=== PATIENT | male | born 1995 | race Caucasian/White ===

== ENCOUNTER 2019-06-16 18:01 | Emergency (ER) | payer SELFPAY ==
[2019-06-16 18:34] VITALS: BP 159/85; PULSE 68; RESP 16; TEMP 36.7; O2SAT 98; BMI 37.5
[2019-06-16 19:34] LABS: Basophils % 0.3 %; Eosinophils # 0.1 10^3/uL (0.0-0.8); Eosinophils % 0.4 %; Hematocrit 45.8 % (42.0-52.0); Hemoglobin 15.3 g/dL (11.7-16.6); Lymphocytes # 2.9 10^3/uL (0.8-4.8); Lymphocytes % 23.9 %; Mean Corpuscular HGB Conc 33.4 g/dL (30.0-36.0); Mean Corpuscular Hemoglobin 29.5 pg (28.0-34.0); Mean Corpuscular Volume 88.2 fL (80-94); Mean Platelet Volume 9.7 fL (7.4-10.4); Monocytes # 0.8 10^3/uL (0.2-0.9); Monocytes % 6.4 %; Neutrophils # 8.2 10^3/uL (1.8-7.7); Neutrophils % 68.2 %; Nucleated Red Blood Cells % 0 %; Platelet Count 260 10^3/cmm (130-400); Red Blood Count 5.19 10^6/uL (4.1-5.3); Red Cell Distribution Width 13.3 % (12.1-15.1)
[2019-06-16 19:48] LABS: Alanine Aminotransferase 23 U/L (0-41); Albumin Level 4.7 g/dL (3.5-5.2); Alkaline Phosphatase 68 IU/L (40-130); Anion Gap 12.8 (5-19); Aspartate Amino Transferase 17 U/L (0-40); Blood Urea Nitrogen 11 mg/dL (6-20); Calcium 9.5 mg/dL (8.5-10.5); Carbon Dioxide 29 mmol/L (22-29); Chloride 106 mmol/L (98-107); Globulin 2.2 g/dL (1.3-4.6); Glomerular Filtration Rate 93.4 mL/min (90-130); Glucose 109 mg/dL (65-115); Lipase 22 U/L (13-60); Osmolality Calculated 295 mOsm/kg (285-295); Potassium 3.8 mmol/L (3.5-5.1); Sodium 144 mmol/L (136-145); Total Bilirubin 0.4 mg/dL (0.15-1.2); Total Protein 6.9 g/dL (6.6-8.7)
[2019-06-16 20:30] LABS: Add Urine Microscopic? YES; Bilirubin Urine Neg (NEGATIVE); Blood Urine Neg (Negative); Glucose Urine UA Norm (Normal); Ketones Urine 1+ (Negative); Leukocyte Esterase Urine Negative (Negative); Nitrate Urine Negative (Negative); Protein Urine Neg (Negative); Specific Gravity, Urine 1.015 (1.005-1.030); Urine Appearance Cloudy (CLEAR); Urine Color Yellow (Yellow); Urobilinogen Urine 1 mg/dL (Negative); pH Urine 7 (5-7)
[2019-06-16 20:32] LABS: Add Urine Culture? No; Amorphous Sediment Urine 3+; Bacteria Urine TRACE; Coarse Granular Casts Urine 0-4 /lpf; Mucus Urine TRACE; RBC Urine 0-4 /hpf (0-2); Squamous Epithelial Cell Urine 0-4 (0-5); WBC Urine 0-4 /hpf (0-5)
[2019-06-16 21:08] VITALS: O2SAT 97
[2019-06-16 21:10] VITALS: O2SAT 96
[2019-06-16 21:15] VITALS: O2SAT 96
[2019-06-16 21:20] VITALS: O2SAT 98
[2019-06-16] MEDS: ciprofloxacin 500 mg Tablet PO (21:20)
[2019-06-16] MEDS: metroNIDAZOLE 500 MG Tablet PO (21:20)
--- NOTE | 2019-06-17 03:15 | ED_ITS ---
HPI - Abdominal Pain General: Chief Complaint: Abdominal Pain Stated Complaint: abd pain Time Seen by Provider: 06/16/19 21:06 History of Present Illness: HPI narrative: History of diverticulitis and has similar symptoms presently no fever MD elicited complaint: abdominal pain Pertinent past history: diverticulitis Onset (ago): hour(s) Pain Consistency: constant Location: LLQ Severity: mild Radiation: none Migration to: no migration Exacerbating factors: nothing Relieving factors: nothing Associated Symptoms: Denies chills, fever(s), nausea and vomiting Review of Systems Const: Denies: fever, chills or body aches Eyes: Denies: change in vision or blurry vision ENMT: Denies: throat pain or nasal congestion Card: Denies: chest pain or shortness of breath on exertion Resp: Denies: shortness of breath, productive cough or non-productive cough GI: Reports: abdominal pain; Denies: nausea or vomiting : Denies: difficulty urinating Musc: Denies: extremity pain Skin/Breast: Denies: rash Neuro: Denies: headache Psych: Denies: anxiety or depression Yuan/Lymph: Denies: easy bruising PFSH ED PFSH: Social History Smoking and tobacco status: never smoked Physical Exam Const: COMMON NORMALS: no apparent distress, average body habitus and oriented x3 HENMT: COMMON NORMALS: normocephalic HEAD & SCALP: normal to inspection and normocephalic FACE & SINUS: normal facial exam Eye: COMMON NORMALS: conjunctivae normal GENERAL EYE: normal appearance of both eyes CONJUNCTIVA: Yes conjunctivae normal Neck/C-Spine: COMMON NORMALS: no JVD Chest: COMMONS NORMALS: inspection of chest normal Resp: COMMON NORMALS: normal respiratory effort and clear to auscultation bilaterally AUSCULTATION: clear to auscultation bilaterally Cardio: COMMON NORMALS: no JVD, regular rate and regular rhythm RATE: regular rate RHYTHM: regular rhythm GI: COMMON NORMALS: normal to inspection, nondistended, normoactive bowel sounds INSPECTION: Yes normal to inspection AUSCULTATION: Yes normoactive bowel sounds PALPATION: Yes tender (Very mild) Extremity: COMMON NORMALS: normal to inspection and full ROM Neuro: COMMON NORMALS: oriented x3 Course Vital Signs: Vital signs: Vital Signs Temperature 98.0 F 06/16/19 18:34 Pulse Rate 68 06/16/19 18:34 Respiratory Rate 16 06/16/19 18:34 Blood Pressure 159/85 06/16/19 18:34 Pulse Oximetry 98 06/16/19 21:20 MDM - Abdominal Pain Lab Data: Labs: Lab Results 06/16/19 06/16/19 06/16/19 Range/Units 19:23 19:27 19:27 WBC 12.0 H (4.0-10.0) 10^3/ uL RBC 5.19 (4.1-5.3) 10^6/u L Hgb 15.3 (11.7-16.6) g/dL Hct 45.8 (42.0-52.0) % MCV 88.2 (80-94) fL MCH 29.5 (28.0-34.0) pg MCHC 33.4 (30.0-36.0) g/dL RDW 13.3 (12.1-15.1) % Plt Count 260 (130-400) 10^3/c mm MPV 9.7 (7.4-10.4) fL Neut % (Auto) 68.2 % Lymph % (Auto) 23.9 % [place] % (Auto) 6.4 % Eos % (Auto) 0.4 % Baso % (Auto) 0.3 % Neut # (Auto) 8.2 H (1.8-7.7) 10^3/u L Lymph # (Auto) 2.9 (0.8-4.8) 10^3/u L [place] # (Auto) 0.8 (0.2-0.9) 10^3/u L Eos # (Auto) 0.1 (0.0-0.8) 10^3/u L Baso # (Auto) 0.0 (0.0-0.1) 10^3/u L Nucleated RBC % (a uto) 0 % Nucleated RBCs # 0.0 /100WBC Sodium 144 (136-145) mmol/L Potassium 3.8 (3.5-5.1) mmol/L Chloride 106 (98-107) mmol/L Carbon Dioxide 29 (22-29) mmol/L Anion Gap 12.8 (5-19) BUN 11 (6-20) mg/dL Creatinine 1.0 (0.7-1.2) mg/dL GFR Calculation 93.4 (90-130) mL/min Glucose 109 (65-115) mg/dL Calculated Osmolal ity 295 (285-295) mOsm/k g Calcium 9.5 (8.5-10.5) mg/dL Total Bilirubin 0.4 (0.15-1.2) mg/dL AST 17 (0-40) U/L ALT 23 (0-41) U/L Alkaline Phosphata se 68 (40-130) IU/L Total Protein 6.9 (6.6-8.7) g/dL Albumin 4.7 (3.5-5.2) g/dL Globulin 2.2 (1.3-4.6) g/dL Lipase 22 (13-60) U/L Urine Color Yellow (Yellow) Urine Appearance Cloudy (CLEAR) Urine pH 7 (5-7) Ur Specific Gravit y 1.015 (1.005-1.030) Urine Protein Neg (Negative) Urine Glucose (UA) Norm (Normal) Urine Ketones 1+ H (Negative) Urine Blood Neg (Negative) Urine Nitrate Negative (Negative) Urine Bilirubin Neg (NEGATIVE) Urine Urobilinogen 1 H (Negative) mg/dL Ur Leukocyte Nallely ase Negative (Negative) Urine RBC 0-4 H (0-2) /hpf Urine WBC 0-4 H (0-5) /hpf Ur Squamous Epith Cells 0-4 H (0-5) Amorphous Sediment 3+ Urine Bacteria Trace (NONE) Coarse Granular Ca sts 0-4 H /lpf Urine Mucus Trace Discharge Plan Discharge Patient Disposition: Home, Self-Care Clinical Impression: Diverticulitis Condition: Stable Prescriptions: New Flagyl 500 mg tablet 500 mg PO BID 7 Days Qty: 14 RF: 0 ciprofloxacin HCl 500 mg tablet 500 mg PO BID Qty: 14 RF: 0 Discharge Orders: Discharge Order (Routine); Ordered 06/16/19 Ordered By: Mauricio Hewitt Discharge Diet: Advance as tolerated Discharge Activity: Resume usual activity Patient Instructions: Diverticulitis (ED) Activity Restrictions/Additional Instructions: Follow-up with medical provider as directed. Take medications as prescribed. Return to the ER or your medical provider if condition worsens. Please read and understand discharge instructions. If any questions ask please. Discharge Date/Time: 06/16/19 21:28 Coding Level of Care Code ED Contracts Advisor for Terranceg Fwd Exam Comprehensive
== END 2019-06-16 21:28 | disposition home or self-care (01) ==
PROVIDERS: Emergency Medicine; Emergency Provider Nurse Practitioner Family
DX: K57.92 Diverticulitis of intestine, part unspecified, without perforation or abscess without bleeding (principal)
CPT/HCPCS: 12345; 36415; 80053; 81001; 83690; 85025; 99282; 99283

== ENCOUNTER 2020-02-29 11:44 | Outpatient (CLI) | payer SELFPAY ==
[2020-02-29 12:11] VITALS: BP 142/87; PULSE 90; RESP 18; TEMP 36.9; O2SAT 98; BMI 36.0
--- NOTE | 2020-02-29 12:27 | W.ED.ABDPA2 ---
HPI - Abdominal Pain General: Chief Complaint: Abdominal Pain Stated Complaint: SHARP AB PAIN, DARK STOOL YESTERDAY Time Seen by Provider: 02/29/20 12:26 Source: patient Mode of arrival: ambulatory Limitations: no limitations History of Present Illness: HPI narrative: Patient is a 24-year-old male who presents to ED today with a complaint of abdominal pain. Patient tells me he has a history of diverticulitis and states his pain today feels similar. He reports one darker than normal stool yesterday but states his stools have cleared up today. He is not having any nausea or vomiting. No fevers. MD elicited complaint: abdominal pain Pertinent past history: diverticulitis Onset (ago): day(s) Pain Consistency: constant Location: Epigastric and LLQ Severity: moderate Quality: cramping Radiation: none Migration to: no migration Associated Symptoms: Reports diarrhea; Denies chills, dysuria, fever(s), nausea and vomiting Review of Systems Const: Denies: fever(s), chills or body aches Card: Denies: chest pain Resp: Denies: dyspnea GI: Reports: abdominal pain and diarrhea; Denies: nausea or vomiting : Denies: flank pain or dysuria Musc: Denies: back pain PFSH ED PFSH: Social History Smoking and tobacco status: never smoked Physical Exam Const: COMMON NORMALS: no acute distress, average body habitus, patient oriented x3, no limitations, healthy appearing, alert and well nourished Resp: COMMON NORMALS: normal respiratory effort and clear to auscultation bilaterally AUSCULTATION: clear to auscultation bilaterally Cardio: COMMON NORMALS: regular rate and regular rhythm RATE: regular rate RHYTHM: regular rhythm GI: COMMON NORMALS: Normal to inspection, nondistended, normoactive bowel sounds present, Soft to palpation, No hepatosplenomegaly present and no masses PALPATION: Yes Soft to palpation, Yes Tenderness to palpation present (GI) (mid abdomen/LLQ) and Yes No hepatosplenomegaly present : COMMON NORMALS: Yes no CVA tenderness BLADDER/KIDNEY EXAM: Yes no CVA tenderness Back/Pelvis: COMMON NORMALS: no CVA tenderness LUMBAR SPINE/LOWER BACK: Yes normal to inspection, Yes lumbar ROM normal and No lumbar spinal tenderness Neuro: COMMON NORMALS: patient oriented x3, moves all extremities, no focal motor deficits and no sensory deficits noted SENSORIUM/ORIENTATION: Yes alert GAIT: Yes Normal gait present MOTOR EXAM: 5/5 motor strength present throughout Skin: COMMON NORMALS: no rashes or lesions noted GENERAL SKIN EXAM: no rashes or lesions noted Course Vital Signs: Vital signs: Vital Signs Temperature 98.4 F 02/29/20 12:11 Pulse Rate 88 02/29/20 14:11 Respiratory Rate 18 02/29/20 14:11 Blood Pressure 136/59 02/29/20 14:11 Pulse Oximetry 98 02/29/20 14:11 MDM - Abdominal Pain MDM Narrative: Medical decision making narrative: Patient clinically appears well. His vital signs are perfect. Blood work is non-concerning at this time. He has some very mild elevation of his bili and ALT. He has no localized right upper quadrant tenderness. Gallbladder normal on CT imaging. Patient's urine reported manually as dining server is down-this was normal. Incidental findings of some lytic lesions on patient's L4-L5 vertebrae. These are most likely benign however he was made aware of them. Case management is currently working on getting him set up with a primary care provider for further follow-up. Patient denies back pain, radicular symptoms, fevers, or trouble with urinary retention or bowel incontinence. Return to ED precautions given regarding his abdominal pain. Lab Data: Labs: Lab Results 02/29/20 02/29/20 Range/Units 12:40 12:40 WBC 7.6 (4.0-10.0) 10^3/ uL RBC 5.53 H (4.1-5.3) 10^6/u L Hgb 16.2 (11.7-16.6) g/dL Hct 48.1 (42.0-52.0) % MCV 87.0 (80-94) fL MCH 29.3 (28.0-34.0) pg MCHC 33.7 (30.0-36.0) g/dL RDW 12.6 (12.1-15.1) % Plt Count 237 (130-400) 10^3/c mm MPV 10.4 (7.4-10.4) fL Neut % (Auto) 60.8 % Lymph % (Auto) 31.0 % [place] % (Auto) 7.2 % Eos % (Auto) 0.3 % Baso % (Auto) 0.3 % Neut # (Auto) 4.64 (1.8-7.7) 10^3/u L Lymph # (Auto) 2.4 (0.8-4.8) 10^3/u L [place] # (Auto) 0.6 (0.2-0.9) 10^3/u L Eos # (Auto) 0.0 (0.0-0.8) 10^3/u L Baso # (Auto) 0.0 (0.0-0.1) 10^3/u L Nucleated RBC % (a uto) 0 % Nucleated RBCs # 0.0 /100WBC Sodium 140 (136-145) mmol/L Potassium 3.7 (3.5-5.1) mmol/L Chloride 103 (98-107) mmol/L Carbon Dioxide 26 (22-29) mmol/L Anion Gap 14.7 (5-19) BUN 10 (6-20) mg/dL Creatinine 1.0 (0.7-1.2) mg/dL GFR Calculation 92.6 (90-130) mL/min Glucose 96 (65-115) mg/dL Calculated Osmolal ity 289 (285-295) mOsm/k g Calcium 9.6 (8.5-10.5) mg/dL Total Bilirubin 1.5 H (0.15-1.2) mg/dL AST 40 (0-40) U/L ALT 45 H (0-41) U/L Alkaline Phosphata se 75 (40-130) IU/L Total Protein 6.8 (6.6-8.7) g/dL Albumin 4.5 (3.5-5.2) g/dL Globulin 2.3 (1.3-4.6) g/dL Lipase 16 (13-60) U/L Imaging Data ^: CT Abd/Pel: Radiologist's impression: [address] [address] [address] Scan Report Signed Patient: Derrick Elmore Unit #: [id number] : 1995 Age/Sex: 24 / M ADM Date: 02/29/20 Loc: ER Room/Bed: Attending Dr: Ordering Provider/Ordering MD: Chayito Sanz Date of Service: 02/29/20 Procedure(s): CT abdomen pelvis w con* [id number] Accession Number(s): [id number] Report Number: [id number] WS: [id number] CT ABDOMEN AND PELVIS WITH CONTRAST HISTORY: abdominal pain; hx of diverticulitis TECHNIQUE: Imaging performed of the abdomen and pelvis with IV contrast. Single phase imaging of the abdomen. Coronal and sagittal reformats are submitted. All CT scans at [facility] use at least one of these dose optimization techniques: automated exposure control; mA and/or kV adjustment per patient size (includes targeted exams where dose is matched to clinical indication); or iterative reconstruction. IV CONTRAST: Omnipaque 300; 95 mL IV. Oral contrast: No DLP: 960.9 mGy.cm COMPARISON: 11/30/2016 Lower thorax: Lung bases are clear. Heart is normal size. No hiatal hernia. Liver/biliary system: Normal size with no intrahepatic dilatation. Gallbladder: Normal. No gallstones or wall thickening. No pericholecystic fluid. Pancreas: Normal. Spleen: Normal. Adrenal glands: Normal. Right kidney: Cortical cyst 10 mm upper pole of the RIGHT kidney. No obstruction or calcification. Left kidney: Normal. Aorta: Normal. Lymphadenopathy: None. Free fluid: None. GI tract: Normal appendix. Mild fecal retention with no obstruction. Mild diverticulosis seen on the prior study is no longer apparent. There is no evidence for an acute inflammation. Abdominal wall: Unremarkable abdominal wall. No hernia. Pelvis: Normal. Bones: New lytic area in the L4 vertebral body measures 14 mm. There is an additional smaller lytic area in the superior endplate of L5 was is probably a Schmorl's node. Lytic areas are well circumscribed. Probably benign. CT/CT abdomen pelvis w con* [id number] IMPRESSION: 1. No acute abdominal or pelvic abnormalities are identified. 2. Normal appendix. 3. No evidence for diverticulitis. 4. No free fluid. 5. New lytic areas in the L4 and L5 vertebral bodies. Well-corticated and may be benign. For further evaluation consider nuclear medicine bone scan evaluation. Dictated By: Tatiana Browne DO Signed By: Tatiana Browne DO Signed Date/Time: 02/29/20 1302 DD/ [id number] Discharge Plan Discharge Patient Disposition: Home Clinical Impression: Lesion of lumbar spine, Abdominal pain of unknown cause Condition: Stable Prescriptions: No Action No Known Home Medications RF: 0 Discharge Orders: Discharge ED (Routine); Ordered 02/29/20 Ordered By: Chayito Sanz Patient Instructions: Abdominal Pain (ED) Activity Restrictions/Additional Instructions: As discussed case management will set you up with a primary care provider. As we spoke about, the radiologist did note some most likely benign lesions to your lumbar spine however I would like you to follow-up with primary care regarding these. You may return to the emergency department for worsening abdominal pain, repetitive episodes of vomiting, bloody stools, fevers, or any other concerns you may have. Coding Level of Care Code ED Corrective Therapy Aide Teacher for Chg Fwd Exam Detailed
--- NOTE | 2020-02-29 12:38 | CT_ITS ---
WS: [id number] CT ABDOMEN AND PELVIS WITH CONTRAST HISTORY: abdominal pain; hx of diverticulitis TECHNIQUE: Imaging performed of the abdomen and pelvis with IV contrast. Single phase imaging of the abdomen. Coronal and sagittal reformats are submitted. All CT scans at [facility] use at least one of these dose optimization techniques: automated exposure control; mA and/or kV adjustment per patient size (includes targeted exams where dose is matched to clinical indication); or iterativ e reconstruction. IV CONTRAST: Omnipaque 300; 95 mL IV. Oral contrast: No DLP: 960.9 mGy.cm COMPARISON: 11/30/2016 Lower thorax: Lung bases are clear. Heart is normal size. No hiatal hernia. Liver/biliary system: Normal size with no intrahepatic dilatation. Gallbladder: Normal. No gallstones or wall thickening. No pericholecystic fluid. Pancreas: Normal. Spleen: Normal. Adrenal glands: Normal. Right kidney: Cortical cyst 10 mm upper pole of the RIGHT kidney. No obstruction or calcification. Left kidney: Normal. Aorta: Normal. Lymphadenopathy: None. Free fluid: None. GI tract: Normal appendix. Mild fecal retention with no obstruction. Mild diverticulosis seen on the prior study is no longer apparent. There is no evidence for an acute inflammation. Abdominal wall: Unremarkable abdominal wall. No hernia. Pelvis: Normal. Bones: New lytic area in the L4 vertebral body measures 14 mm. There is an additional smaller lytic a lina in the superior endplate of L5 was is probably a Schmorl's node. Lytic areas are well circumscrib ed. Probably benign. CT/CT abdomen pelvis w con* [id number] IMPRESSION: 1. No acute abdominal or pelvic abnormalities are identified. 2. Normal appendix. 3. No evidence for diverticulitis. 4. No free fluid. 5. New lytic areas in the L4 and L5 vertebral bodies. Well-corticated and may be benign. For further evaluation consider nuclear medicine bone scan evaluatio n.
[2020-02-29] MEDS: iohexol 300 mg/mL 100 mL Btl IV (12:48)
[2020-02-29 12:56] LABS: Basophils % 0.3 %; Eosinophils % 0.3 %; Hematocrit 48.1 % (42.0-52.0); Hemoglobin 16.2 g/dL (11.7-16.6); Lymphocytes # 2.4 10^3/uL (0.8-4.8); Mean Corpuscular HGB Conc 33.7 g/dL (30.0-36.0); Mean Corpuscular Hemoglobin 29.3 pg (28.0-34.0); Mean Platelet Volume 10.4 fL (7.4-10.4); Monocytes # 0.6 10^3/uL (0.2-0.9); Monocytes % 7.2 %; Neutrophils # 4.64 10^3/uL (1.8-7.7); Neutrophils % 60.8 %; Nucleated Red Blood Cells % 0 %; Platelet Count 237 10^3/cmm (130-400); Red Blood Count 5.53 10^6/uL (4.1-5.3); Red Cell Distribution Width 12.6 % (12.1-15.1); White Blood Count 7.6 10^3/uL (4.0-10.0)
[2020-02-29 13:09] LABS: Alanine Aminotransferase 45 U/L (0-41); Albumin Level 4.5 g/dL (3.5-5.2); Alkaline Phosphatase 75 IU/L (40-130); Anion Gap 14.7 (5-19); Aspartate Amino Transferase 40 U/L (0-40); Blood Urea Nitrogen 10 mg/dL (6-20); Calcium 9.6 mg/dL (8.5-10.5); Carbon Dioxide 26 mmol/L (22-29); Chloride 103 mmol/L (98-107); Globulin 2.3 g/dL (1.3-4.6); Glomerular Filtration Rate 92.6 mL/min (90-130); Glucose 96 mg/dL (65-115); Lipase 16 U/L (13-60); Osmolality Calculated 289 mOsm/kg (285-295); Potassium 3.7 mmol/L (3.5-5.1); Sodium 140 mmol/L (136-145); Total Bilirubin 1.5 mg/dL (0.15-1.2); Total Protein 6.8 g/dL (6.6-8.7)
[2020-02-29 13:46] VITALS: BP 136/59; PULSE 77; RESP 16; O2SAT 97
--- NOTE | 2020-02-29 13:47 | PC.NURSE ---
urine sent to lab twice, not showing received. lab states has not received order again on their side
[2020-02-29 14:11] VITALS: BP 136/59; PULSE 88; RESP 18; O2SAT 98
--- NOTE | 2020-03-04 09:33 | DCPLANNER ---
Addendum entered by Kristen Putnam 03/27/20 10:52: Patient called binder caser about a follow up appointment with a primary care physician. fisheries manager told patient that binder caser had faxed patients information to [facility], where patient stated that he wanted to get established. fisheries manager called to confirm that clinic had received patients information and was going to schedule an appointment. fisheries manager was told that binder caser was not able to schedule a follow up appointment, that patient would need to call. fisheries manager explained this to patient, gave patient the phone number to [facility], told him to call clinic and schedule follow up. fisheries manager called [facility] to confirm that clinic still had patients information, was told that clinic had patients information. Patient has called and scheduled a follow up appointment. Original Note: fisheries manager had message that patient needed to get patient established with a primary care physician. Patient would like to be set up at [facility]. fisheries manager faxed patients information to the clinic. fisheries manager will call to confirm that clinic received patients information. Clinic will call patient to schedule follow up appointment.
== END 2020-03-27 10:03 | disposition home or self-care (01) ==
PROVIDERS: Emergency Provider Physician Assistant
DX: R10.9 Unspecified abdominal pain (principal); S34.119A Complete lesion of unspecified level of lumbar spinal cord, initial encounter; X58.XXXA Exposure to other specified factors, initial encounter
CPT/HCPCS: 12345; 74177; 80053; 83690; 85025; 99283; Q9967

== ENCOUNTER → 2020-10-22 15:34 | Outpatient (BNVA) | payer OTHER, SELFPAY | PROVIDERS: Visit Provider Nurse Practitioner Family | DX: Z20.822 Contact with and (suspected) exposure to COVID-19 (principal); J06.9 Acute upper respiratory infection, unspecified | CPT/HCPCS: 87635 ==